=== PATIENT | male | born 1965 | race Caucasian/White ===

== ENCOUNTER → 2017-04-27 | Outpatient (CLI) | payer MEDICAID ==
[~2017-04-27] MED LIST: BUSPIRONE HYDRO15 MG PO; COUMADIN 5MG TAB5 MG PO; FLEXERIL5 MG PO; HYDROCOT25 MG PO; LASIX40 MG PO; LEXAPRO 10 MG T10 MG PO; LISINOPRIL40 MG PO; LOVENOX 150150 MG/ML SC; NEURONTIN800 MG PO; NICODERM C21 MG/24 H TD; Oxycodone5 MG PO; ULTRAM50 MG PO; WARFARIN SODIU2.5 MG PO; WARFARIN SODIU7.5 M2 PO; XANAX 1MG TABLET1 MG PO
[2017-04-27 19:37] LABS: AMPHETAMINES/METAMPHETAMINES NEGATIVE ng/mL (<1000)
[2017-05-05 18:41] LABS: Codeine Negative (Cutoff=100); Hydrocodone Negative (Cutoff=100); Hydromorphone Negative (Cutoff=100); Morphine Positive (.); Opiates Positive (.)
== END ==
LOC: LAB 18:22
PROVIDERS: Emergency Medicine; Nurse Practitioner Family
DX: Z79.899 Other long term (current) drug therapy (principal)

== ENCOUNTER 2017-06-26 23:49 | Emergency (ER) | payer MEDICAID ==
[~2017-06-26] VITALS: Ht 170.2 cm; Wt 90.7 kg
--- NOTE | 2017-06-27 00:29 | Emergency Room Report ---
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 N Clinical Suspician of Infection? N Mental Status: 1 - Regular (Normal Baseline) Sepsis Risk:Low Sepsis Risk Have you (or family members/close friends) recently traveled outside the [place]? N If Yes, where/when: Have you had exposure to infectious disease within the past month? N TB? Other? Specify: Source patient, RN notes reviewed, police, old records Exam Limitations no limitations Comment reported heroin use today and he reports doing ok now Cardiac Chest Pain Chest pain indicative of cardiac No Timing/Duration this evening Severity moderate ALLERGIES Coded Allergies: No Known Allergies (11/30/15) Home Medications Reported Medications Hydrochlorothiazide (Hydrocot) 25 MG PO DAILY #30 Lisinopril (Lisinopril 40MG) 40 MG PO DAILY History Medical History General CAD? No Angina: No PR: No Hypertension? Yes Hyperlipidemia? No CHF? No DVT? No PE? Yes COPD? Yes Asthma? No Anemia? No GERD? Yes Gastric ulcers? No GI Bleed? No Hernia? Yes Thyroid Problems? No Hypothyroidism? No CVA? No Seizures? No Diabetes? No Renal Insuffiency? No End Stage Renal Disease? No UTI? No Stones? No BPH? No GB Disease: No Nephritic Syndrome? No Asplenia? No Hepatitis? No Sickle Cell Disease? No Arthritis? Yes Migraines? Yes Cataracts? No Glaucoma? No MRSA? No HIV? No TB? No Anxiety? Yes Depression? No Cancer? No More? No Additional hx: LEG EDEMA OVER LAST SEVERAL DAYS, SOB, CP Immunization Hx DT/Tetanus Unknown Flu Refused Pneumonia Refuses Surgical Hx Previous Surgery?Y GLASS REMOVED RT FA R ARM SURGERY Family History Family Hx Diabetes No CAD Yes Hypertension Yes Hyperlipidemia No Cancer No TB No Social History Smoking Hx Smoker: Current Every Day Smoker Tobacco: Yes Type Cigarettes Packs/day 2 1/2 - 3 Packs Alcohol Alcohol: No Drugs none Review of Systems All Other Systems Reviewed and Negative Constitutional denies fever Eyes denies drainage ENT denies: ear discharge, epistaxis, throat pain. Respiratory denies cough, denies shortness of breath, denies wheezing Cardiovascular denies chest pain, denies syncope Gastrointestinal denies abdominal pain, denies diarrhea, denies vomiting Genitourinary denies: dysuria, frequency, hesitancy, hematuria. Musculoskeletal denies back pain, denies joint pain, denies joint swelling, denies neck pain Skin denies rash Psychiatric/Neurological denies headache, denies seizure Physical Exam Vital Signs Vital Signs Date Time Temp Pulse Resp B/P Pulse O2 O2 Flow FiO2 Ox Delivery Rate 06/26 2356 98.5 110 16 124/57 99 - WBC >12,000 or <4,000 or 10% bands? 2 or more SIRS Criteria Met? B/P:124/57 MAP:79 Creatinine >2.0? UA output<0.5ml/kg/hr for 2 hrs? Platelet count >100,000? Lactate >2.0mmol/1? INR >1.2 or PTT > than 60 sec? Evidence of Organ Dysfunction? Provider documented clinical suspician of infection? N Sepsis Criteria Count: 1 Sepsis Risk: Low Sepsis Risk General Appearance no apparent distress Eye Exam - bilateral eye PERRL, bilateral eye EOMI Ear, Nose, Throat normal ENT inspection Neck non-tender Respiratory Status No: respiratory distress. Lung Sounds bilateral: lungs clear. 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 No Departure Departure Time of Disposition 0023 Disposition DC Home or Self Care(routine) Clinical Impression Primary Impression: Medical clearance for incarceration Condition STABLE Patient Instructions DI for Drug Abuse and Drug Addiction Additional Instructions call pcp for follow up Discharge Counseling Counseled pt/family regarding diagnosis, follow up needs ED Critical Care Critical Care No at 0028
[2017-06-27 00:48] VITALS: BP 124/74
--- OUTSIDE RECORDS SUMMARY | 2017-06-27 00:57 | External Medical Summary Rpt | CCD ---
Author Author , DMITRIY IZAGUIRRE Address Unknown Phone [email or web address] Providers Care Teacher Associate Name Role Phone ZAYRA SOLORZANO MD, PSC, Unavailable Unavailable ZAYRA SOLORZANO MD, PSC [facility] Unavailable Unavailable SERVICE, [facility] Unavailable Unavailable INC, [facility] Unavailable Unavailable HOSPITAL P, [facility] SCHAFER JUAN J, [facility]AF[facility] JUAN J Unavailable Unavailable [facility], Unavailable Unavailable [facility] Un[facility], [facility] Un[facility], [place] [facility] Unavailable Unavailable INTERNAL MED, [facility] INTER[facility] MED [facility], Unavailable Unavailable PLL[facility], [facility] Purpose Continuity of Care Document - 10-09-2012 through 2016 Problems Code Diagnosis DOS Provider Status [id number] OTHER LONG 04-27-2017 [facility] CURRENT INC DRUG THERAPY H5203 HYPERMETROP 01-13-2016 SCHAFER JUAN J IA BILATERAL [id number] REFRACTIVE 01-13-2016 SCHAFER JUAN J AMBLYOPIA LEFT EYE I10 ESSENTIAL 12-23-2015 [facility] PRIMARY [facility]ANS HYPERTENSIO GROUP N I2699 OTH 12-23-2015 [facility] PULMONARY PHYSICIANS EMBOLISM GROUP W/O ACUTE COR PULMONALE M4802 SPINAL 12-23-2015 [facility] STENOSIS PHYSICIANS CERVICAL GROUP REGION R079 CHEST PAIN 12-03-2015 [facility] UNSPECIFIED PHYSICIANS GROUP R609 EDEMA 12-03-2015 [facility] UNSPECIFIED PHYSICIANS GROUP [id number] PAIN IN LEG 12-01-2015 [facility] [id number] PAIN IN 12-01-2015 [facility] M7989 OTHER 12-01-2015 [place] SPECIFIED [facility] SOFT TISSUE IMAGING ASS DISORDERS K828 OTHER 11-04-2015 [place] SPECIFIED [facility]ICAL DISEASES OF IMAGING ASS GALLBLADDER M542 CERVICALGIA 11-04-2015 [facility] R140 ABDOMINAL 11-04-2015 [facility] GASEOUS [facility] Z5181 ENCOUNTER 11-04-2015 [facility] THERAPEUTIC INC DRUG LEVEL MONITORING Z7901 ALF 11-04-2015 [facility] CURRENT USE [facility] OF INC ANTICOAGULA NTS J449 CHRONIC 11-03-2015 [facility] OBSTRUCTIVE [facility] PULMONARY INC DISEASE UNS K219 GASTRO-ESOP 11-03-2015 [facility] H REFLUX [facility] DISEASE INC WITHOUT ESOPHAGITIS M545 LOW BACK 11-03-2015 [facility] Z720 TOBACCO USE 11-03-2015 [facility] INC L0390 CELLULITIS 10-23-2015 [facility] UNSPECIFIED PHYSICIANS GROUP Q87173 PAIN IN 09-09-2015 [place] [facility] X29498 PAIN IN 09-09-2015 [place] [facility]G [facility]ICAL [facility] R161 SPLENOMEGAL 09-09-2015 [place] Y NOT MEDICAL ELSEWHERE IMAGING ASS CLASSIFIED [id number] PERSONAL 09-09-2015 [place] HIST[facility] OF MEDICAL PULMONARY IMAGING ASS EMBOLISM R600 LOCALIZED 09-08-2015 [facility] EDEMA PHYSICIANS GROUP Z8249 FAMILY HX 09-08-2015 [facility] ISCHEMIC PHYSICIANS HRT DZ OTH GROUP DZ CIRC SYSTEM E860 DEHYDRATION 06-25-2015 [facility] P E871 HYPO-OSMOLA 06-25-2015 [facility] HYPONATREMI PLL A E876 HYPOKALEMIA 06-25-2015 [facility] N289 DISORDER OF 06-25-2015 [facility] URETER PLL UNSPECIFIED R202 PARESTHESIA 06-25-2015 [facility] 7224 DEGENERATIO 03-26-2015 [facility] RO[facility] OF , PSC CERVICAL INTERVERTEB RAL DISC 7234 BRACHIAL 03-26-2015 [facility] NEURITIS OR MEM HOS[facility] INC RADICULITIS NOS 7823 EDEMA 03-15-2015 [facility] 3532 CERVICAL 02-12-2015 [facility] [place] LESIONS NOT INTERNAL ELSEWHERE MED CLASSIFIED 4019 UNSPECIFIED 02-12-2015 [facility] HYPERTENSIO INTERNAL N MED 20458 OTHER&UNSPE 02-12-2015 [facility] CIFIED DISC [facility] DISORDER INTERNAL CERVICAL MED REGION 7242 LUMBAGO 02-12-2015 [facility] 7244 THORACIC/CHELSEA 02-12-2015 [facility] NEURITIS/RA INTERNAL DICULITIS MED UNSPEC V700 ROUTINE 02-12-2015 [facility] MEDICAL INTERNAL [email or web address] CARE FACL V8533 BODY MASS 02-12-2015 [facility] INDEX VAN ORIN 33.0-33.9 INTERNAL ADULT MED 74694 LONG QT 12-07-2014 [place] [facility] 44071 CHEST PAIN 12-07-2014 [place] [facility]PEC[facility] 54614 OTHER 12-07-2014 [place] [facility] NONSPECIFIC SERV ABNORMAL [facility] FINDING OF LUNG FIELD 51451 NONSPECIFIC 12-07-2014 [place] [facility] ABNORMAL SERV ELECTROCARD [facility] IOGRAM Allergies, Adverse Reactions, Alerts Type Allergy to substance Adverse Reaction to Substance Substance Reaction Severity NO KNOWN ALLERGIES Unknown Unknown Medications Na ND Rx Da Fi Fi Am Da Di Ph RX Ph St me C No te ll ll ou ys ag ar # ys at rm s nt no ma ic us Or Da si cy ia de te s n re d HY 16 10 11 [address] 72 -0 -1 .0 00 ME ti OC 90 9- 0- 00 06 TO ve HL 18 20 20 09 WN OR 31 17 17 58 OT 7 13 PH HI AR AZ MA ID CY E 25 OF MG CY NT TA HI B AN A HY 00 10 11 [address] 18 -0 -1 .0 00 ME ti OX 50 9- 0- 00 06 TO ve YZ 67 20 20 09 WN IN 40 17 17 58 E 5 14 PH PA AR M MA 25 CY MG OF CA CY P NT HI AN A LI 68 10 11 30 30 00 HO Ac SI 18 -0 -1 .0 00 ME ti NO 00 9- 0- 00 06 TO ve MA 51 20 20 09 WN IL 70 17 17 58 3 15 PH 40 AR MA MG CY TA OF BL ET CY NT HI AN A PO 68 10 11 30 30 00 HO Ac TA 00 -0 -1 .0 00 ME ti SS 10 9- 0- 00 06 TO ve IU 23 20 20 09 WN M 50 17 17 58 CL 0 12 PH AR ER MA CY 20 OF ME Q CY TA NT BL HI ET AN A PO 68 09 10 30 30 00 HO Ac TA 00 -0 -1 .0 00 ME ti SS 10 7- 3- 00 06 TO ve IU 23 20 20 09 WN M 50 17 17 06 CL 0 00 PH AR ER MA CY 20 OF ME Q CY TA NT BL HI ET AN A LI 68 09 10 30 30 00 HO Ac SI 18 -0 -1 .0 00 ME ti NO 00 7- 3- 00 06 TO ve MA 51 20 20 09 WN IL 70 17 17 05 3 99 PH 40 AR MA MG CY TA OF BL ET CY NT HI AN A HY 00 09 10 [address] 18 -0 -1 .0 00 ME ti OX 50 7- 3- 00 06 TO ve YZ 67 20 20 09 WN IN 40 17 17 05 E 5 98 PH PA AR M MA 25 CY MG OF CA CY P NT HI AN A HY 16 09 10 30 [address] 72 -0 -1 .0 00 ME ti OC 90 7- 3- 00 06 TO ve HL 18 20 20 09 WN OR 31 17 17 05 OT 7 97 PH HI AR AZ MA ID CY E 25 OF MG CY NT TA HI B AN A GA 09 10 12 30 00 HO Ac BA 00 -0 -1 0. 00 ME ti PE 10 7- 3- 00 04 TO ve NT 00 20 20 0 02 WN IN 70 17 17 36 3 52 PH 80 AR 0 MA MG CY TA OF BL ET CY NT HI AN A LI 68 08 09 30 30 00 HO Ac SI 00 -1 -1 .0 00 ME ti NO 10 0- 5- 00 06 TO ve MA 27 20 20 09 WN IL 10 17 17 05 8 99 PH 40 AR MA MG CY TA OF BL ET CY NT HI AN A PO 68 08 09 30 30 00 HO Ac TA 00 -1 -1 .0 00 ME ti SS 10 0- 5- 00 06 TO ve IU 23 20 20 09 WN M 50 17 17 06 CL 0 00 PH AR ER MA CY 20 OF ME Q CY TA NT BL HI ET AN A GA 68 08 09 12 30 00 HO Ac BA 00 -1 -1 0. 00 ME ti PE 10 0- 5- 00 04 TO ve NT 00 20 20 0 02 WN IN 70 17 17 36 3 52 PH 80 AR 0 MA MG CY TA OF BL ET CY NT HI AN A HY 16 08 09 [address] 72 -1 -1 .0 00 ME ti OC 90 0- 5- 00 06 TO ve HL 18 20 20 09 WN OR 31 17 17 05 OT 7 97 PH HI AR AZ MA ID CY E 25 OF MG CY NT TA HI B AN A HY 00 08 09 90 [address] 18 -1 -1 .0 00 ME ti OX 50 0- 5- 00 06 TO ve YZ 67 20 20 09 WN IN 40 17 17 05 E 5 98 PH PA AR M MA 25 CY MG OF CA CY P NT HI AN A GA 68 07 08 12 30 00 HO Ac BA 00 -1 -1 0. 00 ME ti PE 10 2- 1- 00 04 TO ve NT 00 20 20 0 02 WN IN 70 17 17 36 3 52 PH 80 AR 0 MA MG CY TA OF BL ET CY NT HI AN A HY 16 07 08 [address] 72 -1 -1 .0 00 ME ti OC 90 2- 1- 00 06 TO ve HL 18 20 20 09 WN OR 31 17 17 05 OT 7 97 PH HI AR AZ MA ID CY E 25 OF MG CY NT TA HI B AN A HY 00 07 08 [address] 18 -1 -1 .0 00 ME ti OX 50 2- 1- 00 06 TO ve YZ 67 20 20 09 WN IN 40 17 17 05 E 5 98 PH PA AR M MA 25 CY MG OF CA CY P NT HI AN A LI 68 07 08 30 30 00 HO Ac SI 00 -1 -1 .0 00 ME ti NO 10 2- 1- 00 06 TO ve MA 27 20 20 09 WN IL 10 17 17 05 8 99 PH 40 AR MA MG CY TA OF BL ET CY NT HI AN A PO 68 07 08 30 30 00 HO Ac TA 00 -1 -1 .0 00 ME ti SS 10 2- 1- 00 06 TO ve IU 23 20 20 09 WN M 50 17 17 06 CL 0 00 PH AR ER MA CY 20 OF ME Q CY TA NT BL HI ET AN A HY 16 06 07 [address] 72 -2 -2 .0 00 ME ti OC 90 6- 8- 00 06 TO ve HL 18 20 20 08 WN OR 31 17 17 96 OT 7 56 PH HI AR AZ MA ID CY E 25 OF MG CY NT TA HI B AN A GA 68 06 07 64 16 00 HO Ac BA 00 -2 -2 .0 00 ME ti PE 10 6- 8- 00 06 TO ve NT 00 20 20 08 WN IN 70 17 17 96 3 57 PH 80 AR 0 MA MG CY TA OF BL ET CY NT HI AN A FU 69 06 07 30 30 00 HO Ac RO 31 -2 -2 .0 00 ME ti SE 50 6- 8- 00 06 TO ve WY 11 20 20 08 WN DE 71 17 17 54 0 62 PH 40 AR MA MG CY TA OF BL ET CY NT HI AN A 06 07 30 30 00 HO Ac SI 00 -0 -1 .0 00 ME ti NO 10 9- 4- 00 06 TO ve MA 27 20 20 08 WN IL 10 17 17 54 8 63 PH 40 AR MA MG CY TA OF BL ET CY NT HI AN A 05 06 12 30 00 HO Ac BA 00 -2 -2 0. 00 ME ti PE 10 4- 3- 00 06 TO ve NT 00 20 20 0 08 WN IN 70 17 17 37 3 75 PH 80 AR 0 MA MG CY TA OF BL ET CY NT HI AN A FU 05 06 30 30 00 HO Ac RO 37 -2 -2 .0 00 ME ti SE 80 4- 3- 00 06 TO ve WY 21 20 20 08 WN DE 61 17 17 54 0 62 PH 40 AR MA MG CY TA OF BL ET CY NT HI AN A 06 30 30 00 HO Ac SI 00 -0 -0 .0 00 ME ti NO 10 5- 9- 00 06 TO ve MA 27 20 20 08 WN IL 10 17 17 54 8 63 PH 40 AR MA MG CY TA OF BL ET CY NT HI AN A FU 04 05 30 30 00 HO Ac RO 31 -2 -2 .0 00 ME ti SE 50 0- 6- 00 06 TO ve WY 11 20 20 08 WN DE 71 17 17 54 0 62 PH 40 AR MA MG CY TA OF BL ET CY NT HI AN A 04 05 12 30 00 HO Ac BA 00 -2 -2 0. 00 ME ti PE 10 6- 6- 00 06 TO ve NT 00 20 20 0 08 WN IN 70 17 17 37 3 75 PH 80 AR 0 MA MG CY TA OF BL ET CY NT HI AN A 03 04 30 30 00 HO Ac SI 00 -2 -2 .0 00 ME ti NO 10 9- 8- 00 06 TO ve MA 27 20 20 08 WN IL 10 17 17 23 8 06 PH 40 AR MA MG CY TA OF BL ET CY NT HI AN A 03 04 12 30 00 HO Ac BA 00 -2 -2 0. 00 ME ti PE 10 9- 8- 00 06 TO ve NT 00 20 20 0 08 WN IN 70 17 17 37 3 75 PH 80 AR 0 MA MG CY TA OF BL ET CY NT HI AN A FU 69 03 04 30 30 00 HO Ac RO 31 -2 -2 .0 00 ME ti SE 50 3- 8- 00 06 TO ve WY 11 20 20 08 WN DE 71 17 17 37 0 72 PH 40 AR MA MG CY TA OF BL ET CY NT HI AN A PO 68 03 04 30 30 00 HO Ac TA 00 -2 -2 .0 00 ME ti SS 10 3- 8- 00 06 TO ve IU 23 20 20 08 WN M 50 17 17 37 CL 0 73 PH AR ER MA CY 20 OF ME Q CY TA NT BL HI ET AN A HY 00 03 04 30 [address] 18 -2 -2 .0 00 ME ti OX 50 3- 8- 00 06 TO ve YZ 67 20 20 08 WN IN 40 17 17 37 E 5 74 PH PA AR M MA 25 CY MG OF CA CY P NT HI AN A LI 00 02 03 30 30 00 HO Ac SI 18 -2 -3 .0 00 ME ti NO 50 8- 1- 00 06 TO ve MA 64 20 20 08 WN IL 01 17 17 23 0 06 PH 40 AR MA MG CY TA OF BL ET CY NT HI AN A GA 03 03 12 30 00 HO Ac BA 00 -0 -3 0. 00 ME ti PE 10 1- 1- 00 06 TO ve NT 00 20 20 0 07 WN IN 70 17 17 68 3 44 PH 80 AR 0 MA MG CY TA OF BL ET CY NT HI AN A HY 00 03 03 [address] 17 -0 -3 .0 00 ME ti OC 22 1- 1- 00 06 TO ve HL 08 20 20 08 WN OR 38 17 17 23 OT 0 63 PH HI AR AZ MA ID CY E 25 OF MG CY NT TA HI B AN A HY 00 01 03 30 [address] 17 -3 -0 .0 00 ME ti OC 22 1- 3- 00 06 TO ve HL 08 20 20 07 WN OR 38 17 17 49 OT 0 84 PH HI AR AZ MA ID CY E 25 OF MG CY NT TA HI B AN A LI 00 01 03 30 30 00 HO Ac SI 18 -3 -0 .0 00 ME ti NO 50 1- 3- 00 06 TO ve MA 64 20 20 07 WN IL 01 17 17 49 0 85 PH 40 AR MA MG CY TA OF BL ET CY NT HI AN A GA 01 03 12 30 00 HO Ac BA 00 -3 -0 0. 00 ME ti PE 10 1- 3- 06 TO ve NT 00 20 20 0 07 WN IN 70 17 17 68 3 44 PH 80 AR 0 MA MG CY TA OF BL ET CY NT HI AN A GA 12 30 00 HO Ac BA 00 -0 -0 0. 00 ME ti PE 10 2- 3- 06 TO ve NT 00 20 20 0 07 WN IN 70 17 17 68 3 44 PH 80 AR 0 MA MG CY TA OF BL ET CY NT HI AN A LI 00 07 20 30 30 00 HO Ac SI 18 -0 -0 .0 00 ME ti NO 50 2- 3- 00 06 TO ve MA 64 20 20 07 WN IL 01 17 17 49 0 85 PH 40 AR MA MG CY TA OF BL ET CY NT HI AN A HY 00 07 20 30 [address] 17 -0 -0 .0 00 ME ti OC 22 2- 3- 06 TO ve HL 08 20 20 07 WN OR 38 17 17 49 OT 0 84 PH HI AR AZ MA ID CY E 25 OF MG CY NT TA HI B AN A 12 30 00 HO Ac BA 00 -0 -0 0. 00 ME ti PE 10 5- 9- 06 TO ve NT 00 20 20 0 07 WN IN 70 16 17 68 3 44 PH 80 AR 0 MA MG CY TA OF BL ET CY NT HI AN A LI 00 12 30 30 00 HO Ac SI 18 -0 -0 .0 00 ME ti NO 50 5- 9- 00 06 TO ve MA 64 20 20 07 WN IL 01 16 17 49 0 85 PH 40 AR MA MG CY TA OF BL ET CY NT HI AN A HY 00 06 18 [address] 17 -0 -0 .0 00 ME ti OC 22 5- 9- 06 TO ve HL 08 20 20 07 WN OR 38 16 17 49 OT 0 84 PH HI AR AZ MA ID CY E 25 OF MG CY NT TA HI B AN A Vital Signs 10-10-2012 02:19 Name Value Interpretat Reference Comment ion Range BP 90 mm[Hg] Diastolic BP Systolic 140 mm[Hg] Heart 90 /min Rate/Pulse O2% 95 % Respiratory 20 /min Rate 10-10-2012 01:07 Name Value Interpretat Reference Comment ion Range BP 86 mm[Hg] Diastolic BP Systolic 154 mm[Hg] Heart 73 /min Rate/Pulse O2% 95 % Respiratory 17 /min Rate Results Labs Lab Lab Date Result Refere Interp Status Commen Order Detail nces retati t Range on Opiates and Oxycodone(GC/MS),U (04-27-2017 16:38) Codeine 10-10-2 Negativ Cutoff= complet 017 e 100 ed 16:38 Opiates 10-10-2 Positiv . complet 017 e ed 16:38 Comment: Opiate test includes Codeine, Morphine, Hydromorphone, Hydrocodone. Hydroco 10-10-2 Negativ Cutoff= complet done 017 e 100 ed 16:38 Hydromo 10-10-2 Negativ Cutoff= complet rphone 017 e 100 ed 16:38 Morphin 10-10-2 246 Cutoff= complet e 017 ng/mL 100 ed GC/MS, 16:38 Urine Morphin 10-10-2 Positiv . complet e 017 e ed 16:38 Oxycodo 10-10-2 Negativ Cutoff= complet ne/Oxym 017 e 100 ed orph 16:38 Comment: Test includes Oxycodone and Oxymorphone Comment: Performed at: [facility] RT Comment: [address] [place], [place] [id number] Comment: Fabric Worker Supervisor: Fabien Terry MD, Phone: [phone] Procedures Procedure DOS Code Location Performer Comment DRUG TEST 91361 TJ SPENCER PRSMV 7 [facility] QUAL DIR INC INC OPTICAL OBS PER DAY DRUG TEST G0481 TJ SPENCER DEFINITV [address] [facility] [address] ID INC INC METH P DAY 8-14 DRUG CL Encounters Encounter Start End Date Code Location Performer Type Date [facility] TJ - 7 7 [facility] - 6 6 [facility] - 6 6 [facility] TJ - 6 6 [facility] TJ - 6 6 [facility] TJ - 6 6 [facility] TJ - 6 6 [facility] TJ - 6 6 [facility] TJ - 5 5 [facility] Emergency STEPHANIE Sheets (ER) 3 23:45 3 02:20 [facility] Ilir Damon
--- OUTSIDE RECORDS SUMMARY | 2017-06-27 00:57 | External Medical Summary Rpt | CCD ---
Author Author , DMITRIY IZAGUIRRE Address Unknown Phone [email or web address] Care Team Providers Care Wave Guide Assembler Name Role Phone ZAYRA SOLORZANO MD, PSC, Unavailable Unavailable ZAYRA SOLORZANO MD, PSC [facility] Unavailable Unavailable SERVICE, [facility] Unavailable Unavailable INC, [facility] Unavailable [facility]available HOSPITAL P, [facility] SCHAFER JUAN J, SCHAF[facility] JUAN J Unavailable Unavailable [facility], Unavailable Unavailable [facility], [facility], [facility] Unavailable Unavailable INTERNAL MED, [facility], Unavailable Unavailable PLL[facility], [facility] Purpose Continuity of Care Document - 10-09-2012 through 2016 Problems Code Diagnosis DOS Provider Status [id number] OTHER LONG 04-27-2017 [facility] CURRENT INC DRUG THERAPY H5203 HYPERMETROP 01-13-2016 SCHAFER JUAN J IA BILATERAL [id number] REFRACTIVE 01-13-2016 [facility] JUAN J AMBLYOPIA LEFT EYE I10 ESSENTIAL 12-23-2015 [facility] PRIMARY [facility]YSICIANS HYPERTENSIO GROUP N I2699 OTH 12-23-2015 [facility] PULMONARY PHYSICIANS EMBOLISM GROUP W/O ACUTE COR PULMONALE M4802 SPINAL 12-23-2015 [facility] STENOSIS PHYSICIANS CERVICAL GROUP REGION R079 CHEST PAIN 12-03-2015 [facility] UNSPECIFIED PHYSICIANS GROUP R609 EDEMA 12-03-2015 [facility] UNSPECIFIED PHYSICIANS GROUP W30179 PAIN IN LEG 12-01-2015 [facility] D05786 PAIN IN 12-01-2015 [facility]ING[facility] M7989 OTHER 12-01-2015 [facility] SOFT TISSUE [facility] DISORDERS K828 OTHER 11-04-2015 [facility] DISEASES OF IMAGING ASS GALLBLADDER M542 CERVICALGIA 11-04-2015 [facility] R140 ABDOMINAL 11-04-2015 [facility] GASEOUS [facility] Z5181 ENCOUNTER 11-04-2015 [facility] THERAPEUTIC INC DRUG LEVEL MONITORING Z7901 SHELTER 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 [facility] CURRENT USE [facility] OF INC ANTICOAGULA NTS J449 CHRONIC 11-03-2015 [facility] OBSTRUCTIVE [facility] PULMONARY INC DISEASE UNS K219 GASTRO-ESOP 11-03-2015 [facility] H REFLUX [facility] DISEASE INC WITHOUT ESOPHAGITIS M545 LOW BACK 11-03-2015 [facility] Z720 TOBACCO USE 11-03-2015 [facility] INC L0390 CELLULITIS 10-23-2015 [facility] UNSPECIFIED PHYSICIANS GROUP D18527 PAIN IN 09-09-2015 [facility] B47059 PAIN IN 09-09-2015 [facility] R161 SPLENOMEGAL 09-09-2015 [facility] NOT MEDICAL ELSEWHERE IM[facility]ING ASS CLASSIFIED X02750 PERSONAL 09-09-2015 [facility] PULMONARY [facility] EMBOLISM R600 LOCALIZED 09-08-2015 [facility] EDEMA PHYSICIANS GROUP Z8249 FAMILY HX 09-08-2015 [facility] ISCHEMIC PHYSICIANS HRT DZ OTH GROUP DZ CIRC SYSTEM E860 DEHYDRATION 06-25-2015 [facility] P E871 HYPO-OSMOLA 06-25-2015 [facility] LITMer[facility] AND [...] [facility] HYPERTENSIO INTERNAL N MED 06255 OTHER&UNSPE 02-12-2015 [facility] CIFIED DISC [facility] DISORDER INTERNAL CERVICAL MED REGION 7242 LUMBAGO 02-12-2015 [facility] 7244 THORACIC/CHELSEA 02-12-2015 [facility] NEURITIS/RA INTERNAL DICULITIS MED UNSPEC V700 ROUTINE 02-12-2015 [facility] INTERNAL [email or web address] CARE FACL V8533 BODY MASS 02-12-2015 [facility] INDEX CAROLEEN 33.0-33.9 INTERNAL ADULT MED 50764 LONG QT 12-07-2014 [facility] 53181 CHEST PAIN 12-07-2014 [facility]PEC[facility] 14820 OTHER 12-07-2014 [place] [facility] NONSPECIFIC SERV ABNORMAL [facility] FINDING OF LUNG FIELD 71360 NONSPECIFIC 12-07-2014 [place] [facility] ELECTROCARD [facility] [...] 00 9- 0- 00 06 TO ve [place] 51 20 20 09 WN [place] 70 [...] 00 7- 3- 00 06 TO ve [place] 51 20 20 09 WN [place] 70 [...] 10 0- 5- 00 06 TO ve [place] 27 20 20 09 WN [place] 10 [...] 10 2- 1- 00 06 TO ve [place] 27 20 20 09 WN [place] 10 [...] 50 6- 8- 00 06 TO ve [place] 11 20 20 08 WN DE 71 17 17 54 0 62 PH 40 AR MA MG CY TA OF BL ET CY NT HI AN A 06 07 30 30 00 HO Ac SI 00 -0 -1 .0 00 ME ti NO 10 9- 4- 00 06 TO ve [place] 27 20 20 08 WN [place] 10 [...] 80 4- 3- 00 06 TO ve GA 21 20 20 08 WN DE 61 17 17 54 0 62 PH 40 AR MA MG CY TA OF BL ET CY NT HI AN A 06 30 30 00 HO Ac SI 00 -0 -0 .0 00 ME ti NO 10 5- 9- 00 06 TO ve [place] 27 20 20 08 WN [place] 10 17 17 54 8 63 PH 40 AR MA MG CY TA OF BL ET CY NT HI AN A FU 04 05 30 30 00 HO Ac RO 31 -2 -2 .0 00 ME ti SE 50 0- 6- 00 06 TO ve [place] 11 20 20 08 WN DE 71 [...] 10 9- 8- 00 06 TO ve [place] 27 20 20 08 WN [place] 10 [...] 50 3- 8- 00 06 TO ve [place] 11 20 20 08 WN DE 71 [...] 50 8- 1- 00 06 TO ve [place] 64 20 20 08 WN [place] 01 [...] 50 1- 3- 00 06 TO ve [place] 64 20 20 07 WN [place] 01 [...] 50 2- 3- 00 06 TO ve [place] 64 20 20 07 WN [place] 01 [...] 50 5- 9- 00 06 TO ve [place] 64 20 20 07 WN [place] 01 [...] includes Oxycodone and Oxymorphone Comment: Performed at: [facility] RT Comment: [address], [place] [id number] Comment: Awning Hanger: Fabien Terry MD, Phone: [phone] Procedures Procedure DOS Code Location Performer Comment DRUG TEST 19489 TJ SPENCER PRSMV 7 [facility] QUAL DIR INC INC OPTICAL OBS PER DAY DRUG TEST G0481 TJ SPENCER DEFINITV [address] [facility] [address] ID INC INC METH P DAY 8-14 DRUG CL Encounters Encounter Start End Date Code Location Performer Type Date [facility] TJ - 7 7 [facility] T[facility] - 6 6 [facility] - 6 6 [facility] 6 6 [facility] - 6 6 [facility] 6 6 [facility] - 6 6 [facility] STEPHANIE Sheets (ER) 3 23:45 3 02:20 [facility] Ilir Damon
--- OUTSIDE RECORDS SUMMARY | 2017-06-27 00:58 | External Medical Summary Rpt | CCD ---
Demographics Preferred Language Uzbek Marital Status Unknown [employer] Affiliation Unknown Race Unknown Ethnic Group Unknown Author Author , DMITRIY IZAGUIRRE Address Unknown Phone Immunization No patient found.
--- OUTSIDE RECORDS SUMMARY | 2017-06-27 00:58 | External Medical Summary Rpt | CCD ---
Author Author [facility] Organization [facility] Address Unknown Phone Unavailable Purpose Continuity of Care Document - through 2016
--- OUTSIDE RECORDS SUMMARY | 2017-06-27 00:58 | External Medical Summary Rpt | CCD ---
Demographics Preferred Language German Marital Status Unknown Adventist Affiliation Unknown Race Unknown Ethnic Group Unknown Author Author , DMITRIY IZAGUIRRE Address Unknown Phone Immunization No patient found.
== END 2017-06-27 ==
LOC: ER 23:49
DX: Z02.89 Encounter for other administrative examinations (principal); F11.20 Opioid dependence, uncomplicated; I10 Essential (primary) hypertension; Z86.711 Personal history of pulmonary embolism; J44.9 Chronic obstructive pulmonary disease, unspecified; F17.210 Nicotine dependence, cigarettes, uncomplicated; Z79.899 Other long term (current) drug therapy